=== PATIENT | female | born 1955 | race Caucasian/White ===

== ENCOUNTER 2018-06-28 08:30 | Inpatient (IN) | payer OTHER ==
[~2018-06-28] VITALS: Ht 160 cm; Wt 61.7 kg
[2018-06-28] VITALS (9 sets, daily range): BP systolic 119–149; BP diastolic 60–96
[~2018-06-28 08:30] MED LIST: BENA10TA11 PO; PARO40TA PO; TRIL8 PO
[2018-06-28] MEDS ORDERED: HALOPERIDOL 5 MG TABLET PO PRN (10:15)
[2018-06-28] MEDS ORDERED: ZOLPIDEM TARTRATE 10 MG TABLET PO PRN (10:15)
[2018-06-28] MEDS ORDERED: HYDR25TA PO (10:45)
[2018-06-28] MEDS ORDERED: ESTR-95 PO (10:50)
[2018-06-28] MEDS ORDERED: TRAZ-220 PO (10:53)
[2018-06-28] MEDS ORDERED: ATOR10TA84 PO (10:54)
[2018-06-28] MEDS ORDERED: MAG HYDROX/AL HYDROX/SIMETH ES 30 ML SUSPENSION UDCUP PO PRN (11:45)
[2018-06-28] MEDS ORDERED: CloNIDine HCL 0.1 MG TABLET PO PRN ×2 (11:45→12:00)
[2018-06-28] MEDS ORDERED: GuaiFENesin/D-METHORPHAN [SUGAR-FREE] 200-20MG/10 ML SYRUP UDCUP PO PRN ×2 (11:45→12:00)
[2018-06-28] MEDS ORDERED: MAGNESIUM HYDROXIDE SUSPENSION 30 ML UDCUP PO PRN ×2 (11:45→12:00)
[2018-06-28] MEDS ORDERED: ALBUTEROL SULFATE HFA 90 MCG/PUFF 8 GM INHALER IH PRN ×2 (11:45→12:00)
[2018-06-28] MEDS ORDERED: IBUPROFEN 400 MG TABLET PO PRN ×2 (11:45→12:00)
[2018-06-28] MEDS ORDERED: ACETAMINOPHEN 325 MG TABLET PO PRN ×2 (11:45→12:00)
[2018-06-28] MEDS ORDERED: PETROLATUM,WHITE 71 GM JELLY TP PRN ×2 (11:45→12:00)
[2018-06-28] MEDS ORDERED: LOPERAMIDE HCL 2 MG CAPSULE PO PRN ×2 (11:45→12:00)
[2018-06-28] MEDS ORDERED: DOCUSATE SODIUM 100 MG CAPSULE PO PRN ×2 (11:45→12:00)
[2018-06-28] MEDS ORDERED: ONDANSETRON HCL 4 MG TABLET PO PRN ×2 (11:45→12:00)
[2018-06-28] MEDS ORDERED: NICOTINE 14 MG/24 HOUR PATCH TD PRN ×2 (11:45→12:00)
[2018-06-28] MEDS: LORazepam 2 MG TABLET PO PRN ×2 (12:44→18:48)
[2018-06-28] MEDS ORDERED: PNEUMOCOCCAL VACCINE POLYVALENT 0.5 ML VIAL [PPSV23] IM ONE (15:00)
[2018-06-28] MEDS: MAG HYDROX/AL HYDROX/SIMETH ES 30 ML SUSPENSION UDCUP PO PRN (18:48)
[2018-06-28] MEDS: ATENOLOL 50 MG TABLET PO SCH (20:25)
[2018-06-28] MEDS: TraZODone HCL 100 MG TABLET PO SCH (20:25)
[2018-06-29] VITALS (8 sets, daily range): BP systolic 107–130; BP diastolic 64–81
[2018-06-29 08:10] LABS: BASOPHILS % (AUTO) 0.9 % (0.0-2.0); EOSINOPHILS % (AUTO) 2.4 % (1.0-6.0); HEMATOCRIT 37.1 % (36-46); HEMOGLOBIN 12.5 g/dL (12.0-16.0); LYMPHOCYTES # (AUTO) 1.9 K/uL (1.0-4.8); LYMPHOCYTES % (AUTO) 27.8 % (22.0-44.0); MEAN CORPUSCULAR HEMOGLOBIN 28.7 pg (26.0-34.0); MEAN CORPUSCULAR HGB CONC 33.8 G/dL (31.0-37.0); MEAN CORPUSCULAR VOLUME 85 fL (80-100); MONOCYTES # (AUTO) 0.5 K/uL (0.1-1.0); MONOCYTES % (AUTO) 6.7 % (2.0-9.0); NEUTROPHILS # (AUTO) 4.3 K/uL (1.8-7.7); NEUTROPHILS % (AUTO) 62.2 % (40.0-70.0); PLATELET COUNT (AUTO) 205 K/uL (150-450); RED BLOOD CELL COUNT(AUTO) 4.37 MIL/uL (4.00-5.20); RED CELL DISTRIBUTION WIDTH 14.9 % (11.5-14.5)
[2018-06-29 08:36] LABS: HEMOGLOBIN A1C 5.4 % (4.5-6.2)
[2018-06-29 08:37] LABS: ALANINE AMINOTRANSFERASE 24 U/L (12-78); ALKALINE PHOSPHATASE 111 U/L (46-116); ANION GAP 3 mmol/L (8-16); ASPARTATE AMINOTRANSFERASE 27 U/L (15-37); BILIRUBIN,TOTAL 0.5 mg/dL (0.1-1.0); CALCIUM, TOTAL 8.2 mg/dL (8.8-10.5); CARBON DIOXIDE 35 mmol/L (22-29); CHLORIDE 103 mmol/L (98-107); CHOL/HDL RATIO 3.1 (3.9-5.7); CHOLESTEROL 133 mg/dL (131-200); CREATININE 0.86 mg/dL (0.60-1.30); FREE T4 (FREE THYROXINE) 0.81 ng/dL (0.76-1.46); GLOMERULAR FILTR. RATE CALC > 60 mL/min (>60); GLUCOSE,RANDOM 96 mg/dL (70-110); HDL CHOLESTEROL 43 mg/dL (40-60); LDL CHOL (CALC.) 68 mg/dL (0-130); POTASSIUM 3.9 mmol/L (3.5-5.1); SODIUM SERUM 141 mmol/L (136-145); THYROID STIMULATING HORMONE 2.89 uIU/mL (0.36-3.74); TRIGLYCERIDES 112 mg/dL (15-150); UREA NITROGEN, BLOOD 13 mg/dL (7-18)
[2018-06-29] MEDS: PARoxetine HCL 20 MG TABLET PO SCH (09:42)
[2018-06-29] MEDS: BENAZEPRIL HCL 20 MG TABLET PO SCH (09:43)
[2018-06-29] MEDS: LORazepam 2 MG TABLET PO PRN (10:57)
[2018-06-29] MEDS ORDERED: BENA20 PO (11:03)
[2018-06-29] MEDS: ARIPiprazole 5 MG TABLET PO SCH (12:00)
[2018-06-29] MEDS: ESTRADIOL 1 MG TABLET PO SCH (21:04)
[2018-06-29] MEDS: TraZODone HCL 100 MG TABLET PO SCH (21:04)
[2018-06-29] MEDS: ATENOLOL 50 MG TABLET PO SCH (21:04)
[2018-06-30 04:50] VITALS: BP 110/70
[2018-06-30] MEDS: BENAZEPRIL HCL 20 MG TABLET PO SCH (08:08)
[2018-06-30] MEDS: ATORVASTATIN CALCIUM 10 MG TABLET PO SCH (08:08)
[2018-06-30] MEDS: ARIPiprazole 5 MG TABLET PO SCH (08:08)
[2018-06-30] MEDS: PARoxetine HCL 20 MG TABLET PO SCH (08:09)
[2018-06-30] MEDS: HYDROCHLOROTHIAZIDE 25 MG TABLET PO SCH (08:09)
[2018-06-30] MEDS: METHYL SALICYLATE/MENTHOL 85 GM CREAM TP PRN (08:10)
[2018-06-30 08:20] VITALS: BP 120/73
[2018-06-30] MEDS ORDERED: BENAZEPRIL HCL 20 MG TABLET PO SCH (09:00)
[2018-06-30 16:24] VITALS: BP 108/60
[2018-06-30 16:26] VITALS: BP 108/60
[2018-06-30 20:47] VITALS: BP 118/78
[2018-06-30] MEDS: ATENOLOL 50 MG TABLET PO SCH (20:50)
[2018-06-30] MEDS: ESTRADIOL 1 MG TABLET PO SCH (20:50)
[2018-06-30] MEDS: TraZODone HCL 100 MG TABLET PO SCH (20:51)
[2018-07-01 03:40] VITALS: BP 133/74
[2018-07-01] MEDS: METHYL SALICYLATE/MENTHOL 85 GM CREAM TP PRN (03:44)
[2018-07-01 08:17] VITALS: BP 142/74
[2018-07-01] MEDS: PARoxetine HCL 20 MG TABLET PO SCH (08:22)
[2018-07-01] MEDS: ARIPiprazole 5 MG TABLET PO SCH (08:22)
[2018-07-01] MEDS: ATORVASTATIN CALCIUM 10 MG TABLET PO SCH (08:22)
[2018-07-01] MEDS: HYDROCHLOROTHIAZIDE 25 MG TABLET PO SCH (08:22)
[2018-07-01] MEDS: BENAZEPRIL HCL 20 MG TABLET PO SCH (08:22)
[2018-07-01] MEDS: LORazepam 2 MG TABLET PO PRN (08:25)
[2018-07-01 16:15] VITALS: BP 114/76
[2018-07-01 16:17] VITALS: BP 114/76
[2018-07-01] MEDS: ATENOLOL 50 MG TABLET PO SCH (20:33)
[2018-07-01] MEDS: ESTRADIOL 1 MG TABLET PO SCH (20:33)
[2018-07-01] MEDS: TraZODone HCL 100 MG TABLET PO SCH (20:33)
[2018-07-01 20:34] VITALS: BP 120/76
[2018-07-02 06:20] VITALS: BP 117/72
[2018-07-02 06:21] VITALS: BP 117/72
[2018-07-02 08:33] VITALS: BP 110/68
[2018-07-02] MEDS: PARoxetine HCL 20 MG TABLET PO SCH (08:44)
[2018-07-02] MEDS: HYDROCHLOROTHIAZIDE 25 MG TABLET PO SCH (08:44)
[2018-07-02] MEDS: ATORVASTATIN CALCIUM 10 MG TABLET PO SCH (08:44)
[2018-07-02] MEDS: ARIPiprazole 5 MG TABLET PO SCH (08:44)
[2018-07-02] MEDS: BENAZEPRIL HCL 20 MG TABLET PO SCH (08:44)
[2018-07-02] MEDS ORDERED: PERMETHRIN 1% 60 ML LOTION TP ONE (10:15)
[2018-07-02 16:28] VITALS: BP 121/70
[2018-07-02 18:14] VITALS: BP 120/70
[2018-07-02 20:29] VITALS: BP 121/71
[2018-07-02] MEDS: ESTRADIOL 1 MG TABLET PO SCH (20:29)
[2018-07-02] MEDS: TraZODone HCL 100 MG TABLET PO SCH (20:29)
[2018-07-02] MEDS: ATENOLOL 50 MG TABLET PO SCH (20:29)
[2018-07-03 06:22] VITALS: BP 119/77
[2018-07-03 06:24] VITALS: BP 119/77
[2018-07-03 08:05] VITALS: BP 141/75
[2018-07-03] MEDS: ATORVASTATIN CALCIUM 10 MG TABLET PO SCH (08:25)
[2018-07-03] MEDS: ARIPiprazole 5 MG TABLET PO SCH (08:25)
[2018-07-03] MEDS: HYDROCHLOROTHIAZIDE 25 MG TABLET PO SCH (08:26)
[2018-07-03] MEDS: BENAZEPRIL HCL 20 MG TABLET PO SCH (08:26)
[2018-07-03] MEDS: PARoxetine HCL 20 MG TABLET PO SCH (08:27)
[2018-07-03] MEDS ORDERED: TRAZ-220 PO (12:00)
[2018-07-03] MEDS ORDERED: PARO-37 PO (12:00)
[2018-07-03] MEDS ORDERED: ARIP5TAB8 PO (12:00)
[2018-07-03] MEDS ORDERED: PARO20TA24 PO (12:48)
[2018-07-03] MEDS: MAG HYDROX/AL HYDROX/SIMETH ES 30 ML SUSPENSION UDCUP PO PRN (12:49)
[2018-07-03] MEDS ORDERED: ATEN50TA PO (12:51)
== END 2018-07-03 14:20 | disposition home or self-care (01) | DRG 885 ==
LOC: B2X 10:21
PROC: 3E02340 Introduction of Influenza Vaccine into Muscle, Percutaneous Approach (ICD-10-PCS; principal; 2018-06-29)
PROC: 3E0234Z Introduction of Serum, Toxoid and Vaccine into Muscle, Percutaneous Approach (ICD-10-PCS; 2018-06-29)
DX: F25.1 Schizoaffective disorder, depressive type (principal); F10.20 Alcohol dependence, uncomplicated; Z98.84 Bariatric surgery status; I10 Essential (primary) hypertension; B85.0 Pediculosis due to Pediculus humanus capitis; E11.9 Type 2 diabetes mellitus without complications; E78.5 Hyperlipidemia, unspecified; M47.9 Spondylosis, unspecified; Z59.0 Homelessness; Z79.899 Other long term (current) drug therapy; Z91.5 Personal history of self-harm; Z23 Encounter for immunization
CPT/HCPCS: 83036; 84439; 84443; 90686; 90732; G0480

== ENCOUNTER 2018-09-12 16:02 | Inpatient (IN) | payer OTHER ==
[~2018-09-12] VITALS: Ht 160 cm; Wt 63.5 kg
[~2018-09-12 16:02] MED LIST changes: +ARIP5TAB8 PO; +ATEN50TA PO; +ATOR10TA84 PO; -BENA10TA11 PO; +BENA20 PO; +ESTR-95 PO; +HYDR25TA PO; +PARO-37 PO; -PARO40TA PO; +TRAZ-220 PO; -TRIL8 PO
[2018-09-12 18:13] VITALS: BP 141/90
[2018-09-12] MEDS ORDERED: QUEtiapine FUMARATE 100 MG TABLET PO PRN (18:30)
[2018-09-12 19:15] VITALS: BP 123/77
[2018-09-12 20:05] LABS: GLUCOMETER DEV NAME(LOC) BV2X.; GLUCOSE,POINT OF CARE 98 MG/DL (70-110)
[2018-09-12] MEDS: TraZODone HCL 100 MG TABLET PO SCH (20:23)
[2018-09-12] MEDS ORDERED: PETROLATUM,WHITE 71 GM JELLY TP PRN (20:45)
[2018-09-12] MEDS ORDERED: ALBUTEROL SULFATE HFA 90 MCG/PUFF 8 GM INHALER IH PRN (20:45)
[2018-09-12] MEDS ORDERED: CloNIDine HCL 0.1 MG TABLET PO PRN (20:45)
[2018-09-12] MEDS ORDERED: ONDANSETRON HCL 4 MG TABLET PO PRN (20:45)
[2018-09-12] MEDS ORDERED: BENZOCAINE/MENTHOL LOZENGE MM PRN (20:45)
[2018-09-12] MEDS ORDERED: MAG HYDROX/AL HYDROX/SIMETH ES 30 ML SUSPENSION UDCUP PO PRN (20:45)
[2018-09-12] MEDS ORDERED: LOPERAMIDE HCL 2 MG CAPSULE PO PRN (20:45)
[2018-09-12] MEDS ORDERED: ACETAMINOPHEN 325 MG TABLET PO PRN (20:45)
[2018-09-12] MEDS ORDERED: MAGNESIUM HYDROXIDE SUSPENSION 30 ML UDCUP PO PRN (20:45)
[2018-09-12] MEDS ORDERED: IBUPROFEN 600 MG TABLET PO PRN (20:45)
[2018-09-12] MEDS ORDERED: BACITRACIN 28.4 GM OINTMENT TP PRN (20:45)
[2018-09-12] MEDS: ATENOLOL 50 MG TABLET PO SCH (21:00)
[2018-09-12] MEDS: ESTRADIOL 1 MG TABLET PO SCH (21:00)
[2018-09-13 02:41] VITALS: BP 110/64
[2018-09-13 07:48] LABS: BASOPHILS % (AUTO) 1.5 % (0.0-2.0); HEMATOCRIT 31.9 % (36-46); HEMOGLOBIN 10.6 g/dL (12.0-16.0); LYMPHOCYTES # (AUTO) 1.1 K/uL (1.0-4.8); LYMPHOCYTES % (AUTO) 25.7 % (22.0-44.0); MEAN CORPUSCULAR HEMOGLOBIN 28.5 pg (26.0-34.0); MEAN CORPUSCULAR HGB CONC 33.1 G/dL (31.0-37.0); MEAN CORPUSCULAR VOLUME 86 fL (80-100); MONOCYTES # (AUTO) 0.6 K/uL (0.1-1.0); NEUTROPHILS # (AUTO) 2.4 K/uL (1.8-7.7); NEUTROPHILS % (AUTO) 54.8 % (40.0-70.0); PLATELET COUNT (AUTO) 175 K/uL (150-450); RED BLOOD CELL COUNT(AUTO) 3.71 MIL/uL (4.00-5.20); RED CELL DISTRIBUTION WIDTH 14.1 % (11.5-14.5)
[2018-09-13 08:14] LABS: BILIRUBIN,URINE NEGATIVE (NEGATIVE); GLUCOSE, URINE (UA) NEGATIVE (NEGATIVE); KETONES,URINE NEGATIVE (NEGATIVE); LEUKOCYTE ESTERASE ,URINE LARGE (NEGATIVE); NITRATE,URINE NEGATIVE (NEGATIVE); OCCULT BLOOD,URINE TRACE (NEGATIVE); PROTEIN,URINE NEGATIVE (NEGATIVE); UROBILINOGEN,URINE 0.2 mg/dL (<=1.0)
[2018-09-13 08:16] LABS: HEMOGLOBIN A1C 5.4 % (4.5-6.2)
[2018-09-13 08:20] LABS: AMPHET/METH SCREEN,URINE NEGATIVE (NEGATIVE); BARBITURATE SCREEN, URINE NEGATIVE (NEGATIVE); BENZODIAZEPINES SCREEN,URINE NEGATIVE (NEGATIVE); CANNABINOID SCREEN,URINE NEGATIVE (NEGATIVE); COCAINE SCREEN,URINE NEGATIVE (NEGATIVE); METHADONE SCREEN, URINE NEGATIVE (NEGATIVE); OPIATE SCREEN,URINE NEGATIVE (NEGATIVE); PHENCYCLIDINE SCREEN,URINE NEGATIVE (NEGATIVE)
[2018-09-13 08:24] LABS: APPEARANCE,URINE HAZY (CLEAR); RBC,URINE 0-2 /HPF (0-2)
[2018-09-13 08:25] LABS: BACTERIA,URINE Few /HPF (None Seen); SQUAMOUS EPITHELIAL CELL,UR Few /LPF (None Seen)
[2018-09-13 08:25] LABS: ALANINE AMINOTRANSFERASE 12 U/L (12-78); ALBUMIN 2.6 g/dL (3.4-5.0); ALKALINE PHOSPHATASE 73 U/L (46-116); ANION GAP 4 mmol/L (8-16); ASPARTATE AMINOTRANSFERASE 18 U/L (15-37); BILIRUBIN,TOTAL 0.3 mg/dL (0.1-1.0); CALCIUM, TOTAL 8.4 mg/dL (8.8-10.5); CARBON DIOXIDE 31 mmol/L (22-29); CHLORIDE 108 mmol/L (98-107); CHOL/HDL RATIO 2.6 (3.9-5.7); CHOLESTEROL 143 mg/dL (131-200); GLOMERULAR FILTR. RATE CALC > 60 mL/min (>60); GLUCOSE,RANDOM 92 mg/dL (70-110); HDL CHOLESTEROL 54 mg/dL (40-60); LDL CHOL (CALC.) 77 mg/dL (0-130); POTASSIUM 3.8 mmol/L (3.5-5.1); SODIUM SERUM 143 mmol/L (136-145); TOTAL PROTEIN, SERUM 6.3 g/dL (6.4-8.2); TRIGLYCERIDES 59 mg/dL (15-150); UREA NITROGEN, BLOOD 12 mg/dL (7-18)
[2018-09-13 08:37] VITALS: BP 140/79
[2018-09-13] MEDS: OMEPRAZOLE 20 MG CAPSULE PO SCH (09:38)
[2018-09-13] MEDS: DOCUSATE SODIUM 100 MG CAPSULE PO SCH (09:38)
[2018-09-13] MEDS: PARoxetine HCL 20 MG TABLET PO SCH (09:38)
[2018-09-13] MEDS: ATORVASTATIN CALCIUM 10 MG TABLET PO SCH (09:38)
[2018-09-13] MEDS: HYDROCHLOROTHIAZIDE 25 MG TABLET PO SCH (09:38)
[2018-09-13] MEDS: ARIPiprazole 5 MG TABLET PO SCH (09:38)
[2018-09-13] MEDS: BENAZEPRIL HCL 20 MG TABLET PO SCH (09:39)
[2018-09-13] MEDS: LORazepam 1 MG TABLET PO PRN ×2 (09:49→17:22)
[2018-09-13 16:25] VITALS: BP 141/78
[2018-09-13] MEDS ORDERED: NITROFURANTOIN/NITROFURAN MAC 100 MG CAPSULE [MACROBID] PO SCH (17:00)
[2018-09-13] MEDS ORDERED: HYPROMELLOSE 0.5% 15 ML OPHTHALMIC SOLUTION OU PRN (19:00)
[2018-09-13] MEDS: TraZODone HCL 100 MG TABLET PO SCH (20:56)
[2018-09-13] MEDS: ESTRADIOL 1 MG TABLET PO SCH (20:56)
[2018-09-13] MEDS: ATENOLOL 50 MG TABLET PO SCH (20:56)
[2018-09-14 01:04] VITALS: BP 131/86
[2018-09-14 08:17] VITALS: BP 116/62
[2018-09-14] MEDS: ARIPiprazole 5 MG TABLET PO SCH (09:10)
[2018-09-14] MEDS: DOCUSATE SODIUM 100 MG CAPSULE PO SCH (09:10)
[2018-09-14] MEDS: ATORVASTATIN CALCIUM 10 MG TABLET PO SCH (09:10)
[2018-09-14] MEDS: BENAZEPRIL HCL 20 MG TABLET PO SCH (09:11)
[2018-09-14] MEDS: PARoxetine HCL 20 MG TABLET PO SCH (09:11)
[2018-09-14] MEDS: HYDROCHLOROTHIAZIDE 25 MG TABLET PO SCH (09:11)
[2018-09-14] MEDS: OMEPRAZOLE 20 MG CAPSULE PO SCH (09:12)
[2018-09-14] MEDS: LORazepam 1 MG TABLET PO PRN (09:26)
[2018-09-14] MEDS: NITROFURANTOIN/NITROFURAN MAC 100 MG CAPSULE [MACROBID] PO SCH ×2 (09:26→16:30)
[2018-09-14 16:12] VITALS: BP 129/44
[2018-09-14] MEDS: ATENOLOL 50 MG TABLET PO SCH (21:06)
[2018-09-14] MEDS: TraZODone HCL 100 MG TABLET PO SCH (21:06)
[2018-09-14] MEDS: ESTRADIOL 1 MG TABLET PO SCH (21:06)
[2018-09-15 00:26] VITALS: BP 121/68
[2018-09-15 08:00] VITALS: BP 122/68
[2018-09-15] MEDS: OMEPRAZOLE 20 MG CAPSULE PO SCH (09:20)
[2018-09-15] MEDS: HYDROCHLOROTHIAZIDE 25 MG TABLET PO SCH (09:20)
[2018-09-15] MEDS: ARIPiprazole 5 MG TABLET PO SCH (09:21)
[2018-09-15] MEDS: PARoxetine HCL 20 MG TABLET PO SCH (09:21)
[2018-09-15] MEDS: DOCUSATE SODIUM 100 MG CAPSULE PO SCH (09:21)
[2018-09-15] MEDS: BENAZEPRIL HCL 20 MG TABLET PO SCH (09:21)
[2018-09-15] MEDS: LORazepam 1 MG TABLET PO PRN (09:28)
[2018-09-15] MEDS: ATORVASTATIN CALCIUM 10 MG TABLET PO SCH (10:08)
[2018-09-15] MEDS: NITROFURANTOIN/NITROFURAN MAC 100 MG CAPSULE [MACROBID] PO SCH ×2 (10:08→16:15)
[2018-09-15] MEDS ORDERED: GuaiFENesin/D-METHORPHAN [SUGAR-FREE] 200-20MG/10 ML SYRUP UDCUP PO PRN (15:15)
[2018-09-15] MEDS ORDERED: HydrOXYzine PAMOATE 50 MG CAPSULE PO PRN (15:15)
[2018-09-15] MEDS ORDERED: NALT50TA PO (15:48)
[2018-09-15] MEDS ORDERED: PARO-37 PO (15:48)
[2018-09-15] MEDS ORDERED: TRAZ-220 PO (15:48)
[2018-09-15] MEDS ORDERED: ARIP5TAB8 PO (15:48)
[2018-09-15] MEDS: THIAMINE HCL 100 MG TABLET PO SCH (16:15)
[2018-09-15 16:30] VITALS: BP 136/84
[2018-09-15] MEDS: HYPROMELLOSE 0.5% 15 ML OPHTHALMIC SOLUTION OU SCH ×2 (18:27→20:43)
[2018-09-15 20:08] VITALS: BP 138/77
[2018-09-15] MEDS: ATENOLOL 50 MG TABLET PO SCH (20:08)
[2018-09-15] MEDS: TraZODone HCL 100 MG TABLET PO SCH (20:08)
[2018-09-15] MEDS: ESTRADIOL 1 MG TABLET PO SCH (20:08)
[2018-09-16 01:36] VITALS: BP 129/74
[2018-09-16] MEDS: HYPROMELLOSE 0.5% 15 ML OPHTHALMIC SOLUTION OU SCH ×4 (03:00→08:05)
[2018-09-16] MEDS: THIAMINE HCL 100 MG TABLET PO SCH (08:02)
[2018-09-16] MEDS: NITROFURANTOIN/NITROFURAN MAC 100 MG CAPSULE [MACROBID] PO SCH (08:02)
[2018-09-16] MEDS: OMEPRAZOLE 20 MG CAPSULE PO SCH (08:02)
[2018-09-16] MEDS: PARoxetine HCL 20 MG TABLET PO SCH (08:02)
[2018-09-16] MEDS: ARIPiprazole 5 MG TABLET PO SCH (08:03)
[2018-09-16] MEDS: ATORVASTATIN CALCIUM 10 MG TABLET PO SCH (08:03)
[2018-09-16] MEDS: BENAZEPRIL HCL 20 MG TABLET PO SCH (08:03)
[2018-09-16] MEDS: DOCUSATE SODIUM 100 MG CAPSULE PO SCH (08:03)
[2018-09-16] MEDS: HYDROCHLOROTHIAZIDE 25 MG TABLET PO SCH (08:09)
[2018-09-16 08:24] VITALS: BP 114/71
[2018-09-16] MEDS ORDERED: NALT50TA6 PO (08:30)
[2018-09-16] MEDS ORDERED: MACR100 PO (08:30)
[2018-09-16] MEDS ORDERED: HYPR15DR23 OU (08:30)
[2018-09-16] MEDS ORDERED: NALTREXONE HCL 50 MG TABLET PO SCH (09:00)
[2018-09-16] MEDS ORDERED: MULTIVITAMINS WITH MINERALS, THERAPEUTIC TABLET PO SCH (09:00)
[2018-09-16] MEDS ORDERED: FOLIC ACID 1 MG TABLET PO SCH (09:00)
== END 2018-09-16 12:07 | disposition home or self-care (01) | DRG 885 ==
LOC: B2S 18:38 → B2X 09-15 14:52
PROVIDERS: ADMIT Psychiatry & Neurology Psychiatry; ATTEND Psychiatry & Neurology Psychiatry
DX: F33.9 Major depressive disorder, recurrent, unspecified (principal); R45.851 Suicidal ideations; N39.0 Urinary tract infection, site not specified; D64.9 Anemia, unspecified; M19.90 Unspecified osteoarthritis, unspecified site; G47.00 Insomnia, unspecified; F41.9 Anxiety disorder, unspecified; I10 Essential (primary) hypertension; E78.5 Hyperlipidemia, unspecified; E11.9 Type 2 diabetes mellitus without complications; N94.3 Premenstrual tension syndrome; Z56.0 Unemployment, unspecified; Z59.0 Homelessness; Z91.19 Patient's noncompliance with other medical treatment and regimen
CPT/HCPCS: 80307; 83036; 86592; 87081; 87086

== ENCOUNTER 2020-08-02 19:08 | Emergency (ER) | payer MEDICARE, OTHER ==
[~2020-08-02] VITALS: Ht 165.1 cm; Wt 68.2 kg
[~2020-08-02 19:08] MED LIST changes: +ATEN-72 PO; -ATEN50TA PO; -BENA20 PO; +BENA20TA11 PO; +HYDR-1475 PO; -HYDR25TA PO; +HYPR15DR23 OU; +MACR100 PO; +NALT50TA PO; +NALT50TA6 PO; -TRAZ-220 PO; +TRAZ-257 PO
[2020-08-02 19:14] VITALS: BP 147/88
[2020-08-04] MEDS ORDERED: AMOX-429 PO (02:12)
== END 2020-08-02 20:15 | disposition left against medical advice (07) ==
LOC: EMS 19:08
DX: R45.851 Suicidal ideations (principal); Z53.21 Procedure and treatment not carried out due to patient leaving prior to being seen by health care provider

== ENCOUNTER 2020-08-08 12:06 | Inpatient (IN) | payer MEDICARE, MEDICAID ==
[~2020-08-08] VITALS: Ht 160 cm; Wt 65.9 kg
[~2020-08-08 12:06] MED LIST changes: +AMOX-429 PO; -MACR100 PO; -NALT50TA PO
[2020-08-08 14:56] VITALS: BP 128/78
[2020-08-08 16:00] VITALS: BP 119/62
[2020-08-08] MEDS ORDERED: ONDANSETRON HCL 4 MG TABLET PO PRN (16:15)
[2020-08-08] MEDS ORDERED: ACETAMINOPHEN 325 MG TABLET PO PRN (16:15)
[2020-08-08] MEDS ORDERED: CloNIDine HCL 0.1 MG TABLET PO PRN (16:15)
[2020-08-08] MEDS ORDERED: INFLUENZA VIRUS VACCINE QVS 2020-21 (6MO+)/PF 60 MCG/0.5 ML SYRINGE IM ONE (16:15)
[2020-08-08] MEDS ORDERED: -PHARMACY VACCINE NOTE- MISC ONE (16:15)
[2020-08-08] MEDS ORDERED: GuaiFENesin/D-METHORPHAN [SUGAR-FREE] 200-20MG/10 ML SYRUP UDCUP PO PRN (16:15)
[2020-08-08] MEDS ORDERED: DOCUSATE SODIUM 100 MG CAPSULE PO PRN (16:15)
[2020-08-08] MEDS ORDERED: ALBUTEROL SULFATE HFA 90 MCG/PUFF 8 GM INHALER IH PRN (16:15)
[2020-08-08] MEDS ORDERED: LOPERAMIDE HCL 2 MG CAPSULE PO PRN (16:15)
[2020-08-08] MEDS ORDERED: PETROLATUM,WHITE 28 GM JELLY TP PRN (16:15)
[2020-08-08] MEDS ORDERED: NICOTINE 14 MG/24 HOUR PATCH TD PRN (16:15)
[2020-08-08] MEDS: LORazepam 2 MG TABLET PO PRN (18:09)
[2020-08-08] MEDS: ZOLPIDEM TARTRATE 10 MG TABLET PO PRN (20:29)
[2020-08-09 08:40] VITALS: BP 138/79
[2020-08-09] MEDS: HYDROCHLOROTHIAZIDE 25 MG TABLET PO SCH (09:28)
[2020-08-09] MEDS: ARIPiprazole 5 MG TABLET PO SCH (09:28)
[2020-08-09] MEDS: PARoxetine HCL 20 MG TABLET PO SCH (09:28)
[2020-08-09] MEDS: BENAZEPRIL HCL 20 MG TABLET PO SCH (09:28)
[2020-08-09] MEDS: ATORVASTATIN CALCIUM 10 MG TABLET PO SCH (09:29)
[2020-08-09] MEDS: LORazepam 2 MG TABLET PO PRN (09:30)
[2020-08-09] MEDS: MAGNESIUM HYDROXIDE SUSPENSION 30 ML UDCUP PO PRN (13:08)
[2020-08-09 16:30] VITALS: BP 107/65
[2020-08-09] MEDS: ZOLPIDEM TARTRATE 10 MG TABLET PO PRN (21:00)
[2020-08-10 01:10] VITALS: BP 141/91
[2020-08-10] MEDS: IBUPROFEN 400 MG TABLET PO PRN (01:11)
[2020-08-10] MEDS: LORazepam 2 MG TABLET PO PRN ×2 (01:13→09:46)
[2020-08-10 09:00] VITALS: BP 121/72
[2020-08-10] MEDS: ARIPiprazole 5 MG TABLET PO SCH (09:29)
[2020-08-10] MEDS: HYDROCHLOROTHIAZIDE 25 MG TABLET PO SCH (09:29)
[2020-08-10] MEDS: BENAZEPRIL HCL 20 MG TABLET PO SCH (09:30)
[2020-08-10] MEDS: ATORVASTATIN CALCIUM 10 MG TABLET PO SCH (09:30)
[2020-08-10] MEDS: PARoxetine HCL 20 MG TABLET PO SCH (09:30)
[2020-08-10 13:31] VITALS: BP 121/72
[2020-08-10] MEDS: MAGNESIUM HYDROXIDE SUSPENSION 30 ML UDCUP PO PRN (16:10)
[2020-08-10 16:23] VITALS: BP 105/76
[2020-08-10] MEDS: ZOLPIDEM TARTRATE 10 MG TABLET PO PRN (21:01)
[2020-08-11 02:40] VITALS: BP 132/98
[2020-08-11] MEDS: LORazepam 2 MG TABLET PO PRN (02:40)
[2020-08-11] MEDS: IBUPROFEN 400 MG TABLET PO PRN (02:40)
[2020-08-11 08:36] VITALS: BP 126/78
[2020-08-11] MEDS: PARoxetine HCL 20 MG TABLET PO SCH (09:49)
[2020-08-11] MEDS: ATORVASTATIN CALCIUM 10 MG TABLET PO SCH (09:49)
[2020-08-11] MEDS: HYDROCHLOROTHIAZIDE 25 MG TABLET PO SCH (09:49)
[2020-08-11] MEDS: ARIPiprazole 5 MG TABLET PO SCH (09:49)
[2020-08-11] MEDS: BENAZEPRIL HCL 20 MG TABLET PO SCH (09:49)
[2020-08-11 16:00] VITALS: BP 97/62
[2020-08-12 08:00] VITALS: BP 111/65
[2020-08-12] MEDS: PARoxetine HCL 20 MG TABLET PO SCH (09:01)
[2020-08-12] MEDS: ARIPiprazole 5 MG TABLET PO SCH (09:01)
[2020-08-12] MEDS: ATORVASTATIN CALCIUM 10 MG TABLET PO SCH (09:01)
[2020-08-12] MEDS: HYDROCHLOROTHIAZIDE 25 MG TABLET PO SCH (09:01)
[2020-08-12] MEDS: BENAZEPRIL HCL 20 MG TABLET PO SCH (09:01)
[2020-08-12 11:30] VITALS: BP 90/58
[2020-08-12 12:00] VITALS: BP 95/49
[2020-08-12 12:30] VITALS: BP 130/77
[2020-08-12 16:00] VITALS: BP 107/59
[2020-08-12] MEDS: MAGNESIUM HYDROXIDE SUSPENSION 30 ML UDCUP PO PRN (17:53)
[2020-08-12] MEDS: ZOLPIDEM TARTRATE 10 MG TABLET PO PRN (20:46)
[2020-08-13 08:00] VITALS: BP 113/58
[2020-08-13] MEDS: BENAZEPRIL HCL 20 MG TABLET PO SCH (09:00)
[2020-08-13] MEDS: ARIPiprazole 5 MG TABLET PO SCH (09:44)
[2020-08-13] MEDS: ATORVASTATIN CALCIUM 10 MG TABLET PO SCH (09:44)
[2020-08-13] MEDS: HYDROCHLOROTHIAZIDE 25 MG TABLET PO SCH (09:44)
[2020-08-13] MEDS: PARoxetine HCL 20 MG TABLET PO SCH (09:44)
[2020-08-13 13:45] LABS: COVID AG,FIA SOURCE NASOPHARYNGEAL
[2020-08-13 13:48] VITALS: BP 127/77
[2020-08-13 15:00] VITALS: BP 144/80
[2020-08-13] MEDS: IBUPROFEN 400 MG TABLET PO PRN (15:03)
[2020-08-13 17:00] VITALS: BP 134/95
[2020-08-13] MEDS: ZOLPIDEM TARTRATE 10 MG TABLET PO PRN (20:36)
[2020-08-14] MEDS: BENAZEPRIL HCL 20 MG TABLET PO SCH (09:36)
[2020-08-14] MEDS: PARoxetine HCL 20 MG TABLET PO SCH (09:36)
[2020-08-14] MEDS: ARIPiprazole 5 MG TABLET PO SCH (09:36)
[2020-08-14] MEDS: HYDROCHLOROTHIAZIDE 25 MG TABLET PO SCH (09:36)
[2020-08-14] MEDS: ATORVASTATIN CALCIUM 10 MG TABLET PO SCH (09:36)
[2020-08-14 09:45] VITALS: BP 108/72
[2020-08-14] MEDS: IBUPROFEN 400 MG TABLET PO PRN (09:45)
[2020-08-14] MEDS: LORazepam 2 MG TABLET PO PRN (10:18)
[2020-08-14 10:45] VITALS: BP 102/68
[2020-08-14 17:38] VITALS: BP 103/73
[2020-08-14] MEDS: ZOLPIDEM TARTRATE 10 MG TABLET PO PRN (21:08)
[2020-08-15 06:51] LABS: BASOPHILS % (AUTO) 1.2 % (0.0-2.0); EOSINOPHILS % (AUTO) 2.2 % (1.0-6.0); HEMATOCRIT 32.9 % (36-46); HEMOGLOBIN 10.7 g/dL (12.0-16.0); LYMPHOCYTES # (AUTO) 2.1 K/uL (1.0-4.8); LYMPHOCYTES % (AUTO) 29.7 % (22.0-44.0); MEAN CORPUSCULAR HEMOGLOBIN 25.3 pg (26.0-34.0); MEAN CORPUSCULAR HGB CONC 32.5 G/dL (31.0-37.0); MEAN CORPUSCULAR VOLUME 78 fL (80-100); MONOCYTES # (AUTO) 0.6 K/uL (0.1-1.0); MONOCYTES % (AUTO) 8.8 % (2.0-9.0); NEUTROPHILS # (AUTO) 4.2 K/uL (1.8-7.7); NEUTROPHILS % (AUTO) 58.1 % (40.0-70.0); PLATELET COUNT (AUTO) 207 K/uL (150-450); RED BLOOD CELL COUNT(AUTO) 4.22 MIL/uL (4.00-5.20); RED CELL DISTRIBUTION WIDTH 18.5 % (11.5-14.5)
[2020-08-15 07:05] VITALS: BP 104/70
[2020-08-15 07:34] LABS: ANION GAP 7 mmol/L (8-16); CALCIUM, TOTAL 8.7 mg/dL (8.8-10.5); CARBON DIOXIDE 31 mmol/L (22-29); CHLORIDE 100 mmol/L (98-107); CREATININE 0.82 mg/dL (0.60-1.30); GLOMERULAR FILTR. RATE CALC > 60 mL/min (>60); GLUCOSE,RANDOM 90 mg/dL (70-110); POTASSIUM 3.5 mmol/L (3.5-5.1); SODIUM SERUM 138 mmol/L (136-145); UREA NITROGEN, BLOOD 22 mg/dL (7-18)
[2020-08-15 08:34] VITALS: BP 139/99
[2020-08-15] MEDS: BENAZEPRIL HCL 20 MG TABLET PO SCH (08:55)
[2020-08-15] MEDS: PARoxetine HCL 20 MG TABLET PO SCH (08:55)
[2020-08-15] MEDS: HYDROCHLOROTHIAZIDE 25 MG TABLET PO SCH (08:55)
[2020-08-15] MEDS: ARIPiprazole 5 MG TABLET PO SCH (08:55)
[2020-08-15] MEDS: ATORVASTATIN CALCIUM 10 MG TABLET PO SCH (08:55)
[2020-08-15 16:00] VITALS: BP 112/68
[2020-08-15] MEDS: IBUPROFEN 400 MG TABLET PO PRN (17:27)
[2020-08-15] MEDS: LORazepam 2 MG TABLET PO PRN (19:46)
[2020-08-16 08:00] VITALS: BP 108/70
[2020-08-16] MEDS: ARIPiprazole 5 MG TABLET PO SCH (09:26)
[2020-08-16] MEDS: BENAZEPRIL HCL 20 MG TABLET PO SCH (09:26)
[2020-08-16] MEDS: HYDROCHLOROTHIAZIDE 25 MG TABLET PO SCH (09:26)
[2020-08-16] MEDS: ATORVASTATIN CALCIUM 10 MG TABLET PO SCH (09:27)
[2020-08-16] MEDS: PARoxetine HCL 20 MG TABLET PO SCH (09:30)
[2020-08-16 18:03] VITALS: BP 120/89
[2020-08-16] MEDS: IBUPROFEN 400 MG TABLET PO PRN (18:03)
[2020-08-16] MEDS: ZOLPIDEM TARTRATE 10 MG TABLET PO PRN (20:51)
[2020-08-17] MEDS: ARIPiprazole 5 MG TABLET PO SCH (08:29)
[2020-08-17] MEDS: HYDROCHLOROTHIAZIDE 25 MG TABLET PO SCH (08:29)
[2020-08-17] MEDS: ATORVASTATIN CALCIUM 10 MG TABLET PO SCH (08:29)
[2020-08-17] MEDS: BENAZEPRIL HCL 20 MG TABLET PO SCH (08:30)
[2020-08-17] MEDS: PARoxetine HCL 20 MG TABLET PO SCH (08:30)
[2020-08-17 09:43] VITALS: BP 145/87
[2020-08-17 13:33] VITALS: BP 134/78
[2020-08-17] MEDS: IBUPROFEN 400 MG TABLET PO PRN (13:34)
[2020-08-17 16:00] VITALS: BP 91/64
[2020-08-17] MEDS: ZOLPIDEM TARTRATE 10 MG TABLET PO PRN (20:49)
[2020-08-18 08:34] VITALS: BP 122/67
[2020-08-18] MEDS: PARoxetine HCL 20 MG TABLET PO SCH (09:09)
[2020-08-18] MEDS: ARIPiprazole 5 MG TABLET PO SCH (09:09)
[2020-08-18] MEDS: HYDROCHLOROTHIAZIDE 25 MG TABLET PO SCH (09:09)
[2020-08-18] MEDS: BENAZEPRIL HCL 20 MG TABLET PO SCH (09:09)
[2020-08-18] MEDS: ATORVASTATIN CALCIUM 10 MG TABLET PO SCH (09:09)
[2020-08-18 12:07] VITALS: BP 120/63
[2020-08-18] MEDS: IBUPROFEN 400 MG TABLET PO PRN (12:08)
[2020-08-18 13:07] VITALS: BP 112/64
[2020-08-18] MEDS: MAG HYDROX/AL HYDROX/SIMETH ES 30 ML SUSPENSION UDCUP PO PRN (13:39)
[2020-08-18 16:00] VITALS: BP 95/55
[2020-08-18] MEDS: QUEtiapine FUMARATE 25 MG TABLET PO SCH (20:03)
[2020-08-19 08:50] VITALS: BP 129/81
[2020-08-19] MEDS: BENAZEPRIL HCL 20 MG TABLET PO SCH (09:00)
[2020-08-19] MEDS: HYDROCHLOROTHIAZIDE 25 MG TABLET PO SCH (09:13)
[2020-08-19] MEDS: ARIPiprazole 5 MG TABLET PO SCH (09:13)
[2020-08-19] MEDS: ATORVASTATIN CALCIUM 10 MG TABLET PO SCH (09:13)
[2020-08-19] MEDS: PARoxetine HCL 20 MG TABLET PO SCH (09:14)
[2020-08-19 13:20] VITALS: BP 125/62
[2020-08-19] MEDS: IBUPROFEN 400 MG TABLET PO PRN (13:23)
[2020-08-19 14:23] VITALS: BP 129/96
[2020-08-19 16:00] VITALS: BP 140/78
[2020-08-19] MEDS: QUEtiapine FUMARATE 25 MG TABLET PO SCH (20:45)
[2020-08-20 08:54] VITALS: BP 132/70
[2020-08-20] MEDS: ATORVASTATIN CALCIUM 10 MG TABLET PO SCH (10:35)
[2020-08-20] MEDS: PARoxetine HCL 20 MG TABLET PO SCH (10:35)
[2020-08-20] MEDS: HYDROCHLOROTHIAZIDE 25 MG TABLET PO SCH (10:35)
[2020-08-20] MEDS: ARIPiprazole 5 MG TABLET PO SCH (10:35)
[2020-08-20] MEDS: BENAZEPRIL HCL 20 MG TABLET PO SCH (10:36)
[2020-08-20] MEDS: SULFAMETHOX/TRIMETH DS 800-160 MG/TABLET PO SCH ×2 (11:13→16:42)
[2020-08-20] MEDS: CEPHALEXIN MONOHYDRATE 500 MG CAPSULE PO SCH ×2 (11:13→16:42)
[2020-08-20] MEDS: LORazepam 2 MG TABLET PO PRN (13:30)
[2020-08-20 16:30] VITALS: BP 113/67
[2020-08-20 17:28] LABS: COVID AG,FIA SOURCE NASOPHARYNGEAL
[2020-08-20] MEDS: QUEtiapine FUMARATE 25 MG TABLET PO SCH (20:49)
[2020-08-21 08:54] VITALS: BP 121/72
[2020-08-21] MEDS: HYDROCHLOROTHIAZIDE 25 MG TABLET PO SCH (10:14)
[2020-08-21] MEDS: PARoxetine HCL 20 MG TABLET PO SCH (10:14)
[2020-08-21] MEDS: CEPHALEXIN MONOHYDRATE 500 MG CAPSULE PO SCH ×3 (10:14→16:45)
[2020-08-21] MEDS: SULFAMETHOX/TRIMETH DS 800-160 MG/TABLET PO SCH ×2 (10:14→16:45)
[2020-08-21] MEDS: ARIPiprazole 5 MG TABLET PO SCH (10:14)
[2020-08-21] MEDS: MULTIVITAMINS WITH MINERALS, THERAPEUTIC TABLET PO SCH (10:15)
[2020-08-21] MEDS: ATORVASTATIN CALCIUM 10 MG TABLET PO SCH (10:15)
[2020-08-21] MEDS: BENAZEPRIL HCL 20 MG TABLET PO SCH (10:16)
[2020-08-21] MEDS: LORazepam 2 MG TABLET PO PRN (10:26)
[2020-08-21 17:00] VITALS: BP 115/65
[2020-08-21 19:20] VITALS: BP 106/61
[2020-08-21 19:30] VITALS: BP 106/61
[2020-08-21] MEDS: QUEtiapine FUMARATE 25 MG TABLET PO SCH (20:29)
[2020-08-22 06:59] VITALS: BP 137/76
[2020-08-22 08:00] VITALS: BP 134/80
[2020-08-22] MEDS: PARoxetine HCL 20 MG TABLET PO SCH (09:14)
[2020-08-22] MEDS: HYDROCHLOROTHIAZIDE 25 MG TABLET PO SCH (09:14)
[2020-08-22] MEDS: ARIPiprazole 5 MG TABLET PO SCH (09:14)
[2020-08-22] MEDS: SULFAMETHOX/TRIMETH DS 800-160 MG/TABLET PO SCH ×2 (09:14→16:11)
[2020-08-22] MEDS: ATORVASTATIN CALCIUM 10 MG TABLET PO SCH (09:15)
[2020-08-22] MEDS: CEPHALEXIN MONOHYDRATE 500 MG CAPSULE PO SCH ×3 (09:15→16:11)
[2020-08-22] MEDS: BENAZEPRIL HCL 20 MG TABLET PO SCH (09:15)
[2020-08-22] MEDS: MULTIVITAMINS WITH MINERALS, THERAPEUTIC TABLET PO SCH (09:15)
[2020-08-22 16:04] VITALS: BP 108/67
[2020-08-22] MEDS: QUEtiapine FUMARATE 25 MG TABLET PO SCH (20:15)
[2020-08-23 06:36] VITALS: BP 136/71
[2020-08-23 08:11] VITALS: BP 138/84
[2020-08-23] MEDS: MULTIVITAMINS WITH MINERALS, THERAPEUTIC TABLET PO SCH (08:58)
[2020-08-23] MEDS: BENAZEPRIL HCL 20 MG TABLET PO SCH (08:58)
[2020-08-23] MEDS: PARoxetine HCL 20 MG TABLET PO SCH (08:58)
[2020-08-23] MEDS: HYDROCHLOROTHIAZIDE 25 MG TABLET PO SCH (08:58)
[2020-08-23] MEDS: CEPHALEXIN MONOHYDRATE 500 MG CAPSULE PO SCH ×3 (08:58→16:22)
[2020-08-23] MEDS: SULFAMETHOX/TRIMETH DS 800-160 MG/TABLET PO SCH ×2 (08:59→16:22)
[2020-08-23] MEDS: ARIPiprazole 5 MG TABLET PO SCH (08:59)
[2020-08-23] MEDS: ATORVASTATIN CALCIUM 10 MG TABLET PO SCH (08:59)
[2020-08-23 16:14] VITALS: BP 102/64
[2020-08-23] MEDS: IBUPROFEN 400 MG TABLET PO PRN (20:27)
[2020-08-23 20:30] VITALS: BP 120/83
[2020-08-23] MEDS: QUEtiapine FUMARATE 25 MG TABLET PO SCH (20:30)
[2020-08-23] MEDS: ZOLPIDEM TARTRATE 10 MG TABLET PO PRN (20:30)
[2020-08-24 08:15] VITALS: BP 143/76
[2020-08-24] MEDS: ARIPiprazole 5 MG TABLET PO SCH (08:28)
[2020-08-24] MEDS: SULFAMETHOX/TRIMETH DS 800-160 MG/TABLET PO SCH ×2 (08:28→16:05)
[2020-08-24] MEDS: CEPHALEXIN MONOHYDRATE 500 MG CAPSULE PO SCH ×3 (08:28→16:05)
[2020-08-24] MEDS: BENAZEPRIL HCL 20 MG TABLET PO SCH (08:28)
[2020-08-24] MEDS: ATORVASTATIN CALCIUM 10 MG TABLET PO SCH (08:28)
[2020-08-24] MEDS: PARoxetine HCL 20 MG TABLET PO SCH (08:28)
[2020-08-24] MEDS: HYDROCHLOROTHIAZIDE 25 MG TABLET PO SCH (08:28)
[2020-08-24] MEDS: MULTIVITAMINS WITH MINERALS, THERAPEUTIC TABLET PO SCH (08:28)
[2020-08-24] MEDS: IBUPROFEN 400 MG TABLET PO PRN (09:41)
[2020-08-24 09:43] VITALS: BP 143/76
[2020-08-24] MEDS: LORazepam 1 MG TABLET PO PRN (13:13)
[2020-08-24 16:18] VITALS: BP 114/65
[2020-08-24] MEDS: QUEtiapine FUMARATE 25 MG TABLET PO SCH (20:21)
[2020-08-24] MEDS: ZOLPIDEM TARTRATE 10 MG TABLET PO PRN (20:58)
[2020-08-25 06:48] VITALS: BP 124/57
[2020-08-25 08:10] VITALS: BP 114/66
[2020-08-25] MEDS: CEPHALEXIN MONOHYDRATE 500 MG CAPSULE PO SCH ×3 (08:48→16:21)
[2020-08-25] MEDS: MULTIVITAMINS WITH MINERALS, THERAPEUTIC TABLET PO SCH (08:48)
[2020-08-25] MEDS: ATORVASTATIN CALCIUM 10 MG TABLET PO SCH (08:49)
[2020-08-25] MEDS: PARoxetine HCL 20 MG TABLET PO SCH (08:50)
[2020-08-25] MEDS: SULFAMETHOX/TRIMETH DS 800-160 MG/TABLET PO SCH ×2 (08:53→16:22)
[2020-08-25] MEDS: HYDROCHLOROTHIAZIDE 25 MG TABLET PO SCH (08:53)
[2020-08-25] MEDS: BENAZEPRIL HCL 20 MG TABLET PO SCH (08:53)
[2020-08-25] MEDS: ARIPiprazole 5 MG TABLET PO SCH (08:54)
[2020-08-25] MEDS: LORazepam 1 MG TABLET PO PRN (10:55)
[2020-08-25 16:30] VITALS: BP 108/59
[2020-08-25 16:43] VITALS: BP 149/83
[2020-08-25] MEDS: ZOLPIDEM TARTRATE 10 MG TABLET PO PRN (20:12)
[2020-08-25] MEDS: QUEtiapine FUMARATE 25 MG TABLET PO SCH (20:12)
[2020-08-26 08:10] VITALS: BP 130/86
[2020-08-26] MEDS: ARIPiprazole 10 MG TABLET PO SCH (08:42)
[2020-08-26] MEDS: SULFAMETHOX/TRIMETH DS 800-160 MG/TABLET PO SCH ×2 (08:42→16:27)
[2020-08-26] MEDS: BENAZEPRIL HCL 20 MG TABLET PO SCH (08:42)
[2020-08-26] MEDS: CEPHALEXIN MONOHYDRATE 500 MG CAPSULE PO SCH ×3 (08:42→16:26)
[2020-08-26] MEDS: PARoxetine HCL 20 MG TABLET PO SCH (08:42)
[2020-08-26] MEDS: HYDROCHLOROTHIAZIDE 25 MG TABLET PO SCH (08:43)
[2020-08-26] MEDS: ATORVASTATIN CALCIUM 10 MG TABLET PO SCH (08:43)
[2020-08-26] MEDS: MULTIVITAMINS WITH MINERALS, THERAPEUTIC TABLET PO SCH (08:58)
[2020-08-26] MEDS: LORazepam 1 MG TABLET PO PRN (15:53)
[2020-08-26 16:24] VITALS: BP 109/70
[2020-08-26] MEDS: QUEtiapine FUMARATE 25 MG TABLET PO SCH (20:21)
[2020-08-26] MEDS: ZOLPIDEM TARTRATE 10 MG TABLET PO PRN (20:25)
[2020-08-27] MEDS: CEPHALEXIN MONOHYDRATE 500 MG CAPSULE PO SCH (08:23)
[2020-08-27] MEDS: SULFAMETHOX/TRIMETH DS 800-160 MG/TABLET PO SCH (08:23)
[2020-08-27] MEDS: BENAZEPRIL HCL 20 MG TABLET PO SCH (08:24)
[2020-08-27] MEDS: ARIPiprazole 10 MG TABLET PO SCH (08:25)
[2020-08-27] MEDS: PARoxetine HCL 20 MG TABLET PO SCH (08:25)
[2020-08-27] MEDS: ATORVASTATIN CALCIUM 10 MG TABLET PO SCH (08:25)
[2020-08-27] MEDS: MULTIVITAMINS WITH MINERALS, THERAPEUTIC TABLET PO SCH (08:25)
[2020-08-27] MEDS: HYDROCHLOROTHIAZIDE 25 MG TABLET PO SCH (08:29)
[2020-08-27 08:41] VITALS: BP 100/54
[2020-08-27] MEDS: LORazepam 1 MG TABLET PO PRN (13:26)
[2020-08-27 16:30] VITALS: BP 117/66
[2020-08-27 16:31] LABS: COVID AG,FIA SOURCE NASOPHARYNGEAL
[2020-08-27] MEDS: MAG HYDROX/AL HYDROX/SIMETH ES 30 ML SUSPENSION UDCUP PO PRN (18:34)
[2020-08-27] MEDS: QUEtiapine FUMARATE 25 MG TABLET PO SCH (20:28)
[2020-08-27] MEDS: ZOLPIDEM TARTRATE 10 MG TABLET PO PRN (20:28)
[2020-08-28] MEDS: MULTIVITAMINS WITH MINERALS, THERAPEUTIC TABLET PO SCH (08:12)
[2020-08-28] MEDS: BENAZEPRIL HCL 20 MG TABLET PO SCH (08:12)
[2020-08-28] MEDS: ARIPiprazole 10 MG TABLET PO SCH (08:12)
[2020-08-28] MEDS: PARoxetine HCL 20 MG TABLET PO SCH (08:12)
[2020-08-28] MEDS: ATORVASTATIN CALCIUM 10 MG TABLET PO SCH (08:12)
[2020-08-28] MEDS: HYDROCHLOROTHIAZIDE 25 MG TABLET PO SCH (09:00)
[2020-08-28 10:12] VITALS: BP 125/72
[2020-08-28] MEDS ORDERED: ARIP10TA8 PO (11:36)
[2020-08-28] MEDS ORDERED: QUET25TA PO (11:37)
[2020-08-28] MEDS ORDERED: MULT-1239 PO (11:40)
== END 2020-08-28 14:55 | disposition home or self-care (01) | DRG 885 ==
LOC: 3EX 14:56
PROVIDERS: ADMIT Psychiatry & Neurology Child & Adolescent Psychiatry; ATTEND Psychiatry & Neurology Child & Adolescent Psychiatry
DX: F33.2 Major depressive disorder, recurrent severe without psychotic features (principal); L03.90 Cellulitis, unspecified; R45.851 Suicidal ideations; I10 Essential (primary) hypertension; E11.9 Type 2 diabetes mellitus without complications; E78.5 Hyperlipidemia, unspecified; D64.9 Anemia, unspecified; F10.10 Alcohol abuse, uncomplicated; F41.9 Anxiety disorder, unspecified; Z20.822 Contact with and (suspected) exposure to COVID-19; F13.90 Sedative, hypnotic, or anxiolytic use, unspecified, uncomplicated; F41.1 Generalized anxiety disorder; Z59.0 Homelessness; Z28.21 Immunization not carried out because of patient refusal
CPT/HCPCS: 70450; 87081; 87426; 90686; G0378